=== PATIENT | female | born 1960 | race Caucasian/White ===

== ENCOUNTER 2017-02-10 16:47 | Outpatient (CLI) | payer BC ==
[2014-07-12 14:25] VITALS: BP 158/86
== END 2017-02-10 16:50 ==
LOC: LABRHC 16:47
PROVIDERS: ATTEND Physician Assistant
DX: R30.0 Dysuria (principal)
CPT/HCPCS: 87086

== ENCOUNTER 2017-03-01 07:27 | Outpatient (CLI) | payer BC ==
[2014-07-12 14:25] VITALS: BP 158/86
[2017-03-01 08:12] LABS: eGFR (African) > 60; eGFR (Non-African) > 60
== END 2017-03-01 07:30 ==
LOC: LAB 07:27
PROVIDERS: ATTEND Physician Assistant
DX: I10 Essential (primary) hypertension (principal); Z13.6 Encounter for screening for cardiovascular disorders; E03.9 Hypothyroidism, unspecified
CPT/HCPCS: 36415; 80053; 80061; 84443

== ENCOUNTER 2017-03-07 12:03 | Outpatient (CLI) | payer BC ==
[2014-07-12 14:25] VITALS: BP 158/86
[2017-03-07 12:19] LABS: BASOPHILS % 1.3 (0.0-1.5); EOSINOPHILS % 3.6 % (0.0-6.8); MEAN CORPUSCULAR HEMOGLOBIN 31.8 pg (28.0-34.0); MEAN CORPUSCULAR VOLUME 88.9 fl (80.0-100.0); MONOCYTES % 5.1 % (0.0-11.0); NEUTROPHILS # 8.3 # k/uL (1.4-7.7)
[2017-03-07 12:55] LABS: eGFR (African) > 60; eGFR (Non-African) > 60
== END 2017-03-07 12:04 ==
LOC: LAB 12:03
PROVIDERS: ATTEND Podiatrist
DX: M79.671 Pain in right foot (principal); M21.41 Flat foot [pes planus] (acquired), right foot; M20.21 Hallux rigidus, right foot; M77.31 Calcaneal spur, right foot; M79.672 Pain in left foot; M21.42 Flat foot [pes planus] (acquired), left foot; M77.32 Calcaneal spur, left foot; M19.072 Primary osteoarthritis, left ankle and foot
CPT/HCPCS: 36415; 80053; 85025

== ENCOUNTER 2017-10-27 11:35 | Outpatient (CLI) | payer BC ==
[2014-07-12 14:25] VITALS: BP 158/86
--- NOTE | 2017-10-27 19:28 | Diagnostic Imaging Report ---
ANGEL ONEAL [facility] [id number] [facility] [address] [address] Report Submission Date: October 27, 2017 11:56:21 AM CDT Patient Study Name: ABBEY MARTINEZ Date: October 27, 2017 11:36:32 AM CDT Modality Type: DX Gender: F Description: UPPER EXTREMITY : 58 Institution: [facility] Physician: ANGEL ONEAL Examination: Plain film right finger History: RT 3RD DIGIT, PAIN IN 3RD DIGIT AFTER CLOSING FINGER IN CAR DOOR THIS MORNING (Hx) Comparison exams: None available Findings: 3 views the right 3rd digit demonstrate normal cortical margins. No fracture. No dislocation. No soft tissue abnormality. Impression: No acute appearing osseous abnormality Electronically signed on October 27, 2017 11:56:21 AM CDT by: Merlin EATON
== END 2017-10-27 12:31 ==
LOC: RAD 11:35
PROVIDERS: ATTEND Physician Assistant
DX: S69.91XA Unspecified injury of right wrist, hand and finger(s), initial encounter (principal); X58.XXXA Exposure to other specified factors, initial encounter; Y92.9 Unspecified place or not applicable; Y93.9 Activity, unspecified; Y99.9 Unspecified external cause status
CPT/HCPCS: 73140

== ENCOUNTER 2017-12-18 13:41 | Outpatient (CLI) | payer BC ==
[2014-07-12 14:25] VITALS: BP 158/86
[2017-12-18 14:44] LABS: eGFR (African) > 60; eGFR (Non-African) > 60
== END 2017-12-18 13:42 ==
LOC: LAB 13:41
PROVIDERS: ATTEND Family Medicine
DX: E86.0 Dehydration (principal)
CPT/HCPCS: 36415; 80053

== ENCOUNTER 2017-12-29 16:16 | Outpatient (CLI) | payer BC ==
[2014-07-12 14:25] VITALS: BP 158/86
[2017-12-29 16:53] LABS: BASOPHILS % 1.2 (0.0-1.5); EOSINOPHILS % 4.2 % (0.0-6.8); MEAN CORPUSCULAR HEMOGLOBIN 32.3 pg (28.0-34.0); MEAN CORPUSCULAR VOLUME 93.3 fl (80.0-100.0); MONOCYTES % 4.5 % (0.0-11.0); NEUTROPHILS # 6.2 # k/uL (1.4-7.7)
[2017-12-29 17:15] LABS: eGFR (African) > 60; eGFR (Non-African) > 60
== END 2017-12-29 16:35 ==
LOC: LAB 16:16
PROVIDERS: ATTEND Physician Assistant
DX: R53.83 Other fatigue (principal); J02.9 Acute pharyngitis, unspecified
CPT/HCPCS: 36415; 80053; 82607; 82652; 84439; 84443; 84481; 85025; 86308

== ENCOUNTER 2018-03-02 07:40 | Outpatient (CLI) | payer BC ==
[2014-07-12 14:25] VITALS: BP 158/86
== END 2018-03-02 07:42 ==
LOC: LAB 07:40
PROVIDERS: ATTEND Family Medicine
DX: Z00.00 Encounter for general adult medical examination without abnormal findings (principal); E16.2 Hypoglycemia, unspecified
CPT/HCPCS: 36415; 80061; 83036

== ENCOUNTER 2019-04-08 09:58 | Outpatient (CLI) | payer BC ==
[2014-07-12 14:25] VITALS: BP 158/86
[2019-04-08 10:23] LABS: A1C 5.6 % (<5.7)
[2019-04-08 10:43] LABS: eGFR (Non-African) > 60
[2019-04-08 10:44] LABS: HDL 49 mg/dL (>40)
== END 2019-04-08 10:03 ==
LOC: LAB 09:58
PROVIDERS: ATTEND Family Medicine
DX: Z00.00 Encounter for general adult medical examination without abnormal findings (principal); E11.65 Type 2 diabetes mellitus with hyperglycemia; Z79.4 Long term (current) use of insulin
CPT/HCPCS: 36415; 80053; 80061; 83036

== ENCOUNTER 2019-04-19 16:19 | Outpatient (CLI) | payer BC ==
[2014-07-12 14:25] VITALS: BP 158/86
[2019-04-19 18:00] LABS: TSH < 0.010 mIU/l (0.465-4.685)
== END 2019-04-19 16:24 ==
LOC: LAB 16:19
PROVIDERS: ATTEND Family Medicine
DX: R53.83 Other fatigue (principal)
CPT/HCPCS: 36415; 84439; 84443; 84481